=== PATIENT | male | born 1945 | race Caucasian/White ===

== ENCOUNTER 2017-11-07 07:35 | Day surgery (SDC) | payer MEDICARE, BC ==
[2017-11-07] MEDS ORDERED: Lactated Ringers 1,000 ML IV SCH (08:00)
[2017-11-07] MEDS ORDERED: Sodium Chloride 0.9% 10 ML Syringe FLUSH PRN (08:00)
[2017-11-07] MEDS ORDERED: Midazolam 1 MG/ML 2 ML SDV IV ONE (09:30)
[2017-11-07] MEDS ORDERED: Propofol 200 MG/20 ML SDV IV ONE (09:30)
--- NOTE | 2017-11-07 10:03 | PCM.OPNOTE ---
- General Post-Op/Procedure Note Date of Surgery/Procedure: 11/07/17 Operative Procedure(s): c scope Findings: sigmoid diverticulosis Pre Op Diagnosis: hx of colon polyp Post-Op Diagnosis: sigmoid diverticulosis Primary Surgeon: Stevie Cuello Anesthesia Provider: Dedra Mitchell Pathology: none Complications: None Condition: Good Free Text/Narrative:: see dictation
--- NOTE | 2017-11-08 09:20 | OR ---
DATE OF OPERATION: 11/07/2017 SURGEON: Stevie Cuello MD PROCEDURE PERFORMED: Colonoscopy. PREOPERATIVE DIAGNOSIS: Personal history of colon polyps. POSTOPERATIVE DIAGNOSIS: Sigmoid diverticulosis. INDICATIONS FOR PROCEDURE: This is a 72-year-old white male, who presents for a followup colonoscopy. Last C-scope was in 2011. He had an adenomatous polyp removed and it was recommended that he undergo a repeat colonoscopy at this time. DESCRIPTION OF PROCEDURE: After an excellent IV sedation was administered, digital rectal exam was performed, no marked abnormality was noted. The flexible colonoscope was inserted and advanced without difficulty to the cecum. The prep was excellent. The following findings were noted. Ascending colon, unremarkable. Transverse colon, unremarkable. Descending colon, unremarkable. Sigmoid and rectum, mild diverticulosis. Rectum, unremarkable. Colon was deflated as the scope was removed. The patient tolerated procedure well and was taken to recovery in good condition. Repeat colonoscopy would normally be in 10 years, but given his age and current guidelines, this could be on a p.r.n. basis. /[id number] /MATILDE
== END 2017-11-07 10:59 | disposition home or self-care (01) ==
LOC: FB.SDS 07:35
PROVIDERS: ATTEND Surgery
DX: Z12.11 Encounter for screening for malignant neoplasm of colon (principal); K57.30 Diverticulosis of large intestine without perforation or abscess without bleeding; E05.90 Thyrotoxicosis, unspecified without thyrotoxic crisis or storm; Z98.890 Other specified postprocedural states; Z86.010 Personal history of colon polyps; Z87.891 Personal history of nicotine dependence
CPT/HCPCS: 00811-QZ; J2250; J2704; J7120

== ENCOUNTER 2020-06-15 08:14 | Day surgery (SDC) | payer MEDICARE, BC ==
[2020-06-15] MEDS ORDERED: Midazolam 1 MG/ML 2 ML SDV IV ONE (08:15)
[2020-06-15] MEDS ORDERED: fentaNYL 100 MCG/2 ML SDV IV ONE (08:15)
[2020-06-15] MEDS ORDERED: Sodium Chloride 0.9% 10 ML Syringe FLUSH PRN (08:30)
[2020-06-15] MEDS ORDERED: Lactated Ringers 1,000 ML IV PRN (08:30)
[2020-06-15] MEDS ORDERED: acetaZOLAMIDE 500 MG Cap.ER PO ONE (10:30)
--- NOTE | 2020-06-16 13:14 | OR ---
DATE OF OPERATION: 06/15/2020 SURGEON: Cady Calderón MD PREOPERATIVE DIAGNOSIS: Visually significant cataract, right eye. POSTOPERATIVE DIAGNOSIS: Visually significant cataract, right eye. PROCEDURES PERFORMED: Phacoemulsification with intraocular lens placement, right eye. ASSISTANTS: None. ANESTHESIA: Local with sedation. COMPLICATIONS: None. BLOOD LOSS: None. IMPLANTS: Leonides ACU0T0, 12.5 diopter lens, serial #[id number] implanted. CDE: 2.76. DESCRIPTION OF PROCEDURE: After risks and benefits were reviewed with the patient, consent was obtained in the preoperative area, and the operative eye was marked with a surgical pen. In the preoperative area, a pledget was used to dilate the pupil consisting of a mixture of phenylephrine 10%, cyclopentolate 2%, moxifloxacin 0.5%, and bupivacaine 0.75%. The patient was taken to the operating room, where a time-out was performed, and the patient was placed under monitored anesthesia care. Topical tetracaine was used for anesthesia. The operative eye was prepped and draped for ophthalmic surgery, and the microscope was brought into position and focused. A paracentesis incision was made, followed by injection of preservative-free 1% lidocaine into the anterior chamber, followed by injection of Viscoat into the anterior chamber. A microkeratome blade was used to make a corneal limbal incision temporally. A cystotome was used to make the beginning of the capsulorrhexis, which was carried around 360 degrees in a curvilinear fashion using Utrata forceps. A Cifuentes cannula with BSS was used to hydrodissect and hydrodelineate the nucleus. The nucleus was removed in a divide and conquer manner using phacoemulsification. Irrigation and aspiration were used to remove the remaining cortical material. Provisc was used to inflate the capsular bag, and a pre-loaded 12.5 diopter lens, serial number [id number] was injected into the capsular bag. A Sinskey hook was used to position and center the lens. Next, irrigation and aspiration was used to remove any remaining viscoelastic and cortical material from the anterior chamber. BSS on a cannula was used to inflate the anterior chamber and hydrate the wound. The wound was checked and found to be watertight. 1 mg of Moxifloxacin was injected into the anterior chamber. Drapes were removed and the eye was cleaned. A drop of brimonidine 0.15% and a drop of TobraDex was placed. The eye was shielded, and the patient was taken to the recovery room in stable condition. CC: Malcom Guerra MD CC Cristian De La O, OD CC: Cady Calderón MD /[id number] ADELFO/MATILDE
== END 2020-06-15 10:40 | disposition home or self-care (01) ==
LOC: FB.SDS 08:14
PROVIDERS: ATTEND Ophthalmology
DX: H25.813 Combined forms of age-related cataract, bilateral (principal); H35.3111 Nonexudative age-related macular degeneration, right eye, early dry stage; H43.813 Vitreous degeneration, bilateral; Z87.891 Personal history of nicotine dependence
CPT/HCPCS: 00142-QZ; A9270-GY; J2250; J3010; V2632

== ENCOUNTER 2020-06-29 08:42 | Day surgery (SDC) | payer MEDICARE, BC ==
[2020-06-29] MEDS ORDERED: Midazolam 1 MG/ML 2 ML SDV IV ONE (08:43)
[2020-06-29] MEDS ORDERED: fentaNYL 100 MCG/2 ML SDV IV ONE (08:43)
[2020-06-29] MEDS ORDERED: Lactated Ringers 1,000 ML IV SCH (09:30)
[2020-06-29] MEDS ORDERED: Lactated Ringers 1,000 ML IV PRN (09:30)
[2020-06-29] MEDS ORDERED: Sodium Chloride 0.9% 10 ML Syringe FLUSH PRN (09:30)
[2020-06-29] MEDS ORDERED: acetaZOLAMIDE 500 MG Cap.ER PO ONE (09:45)
--- NOTE | 2020-06-30 09:50 | OR ---
DATE OF OPERATION: 06/29/2020 SURGEON: Cady Calderón MD PREOPERATIVE DIAGNOSIS: Visually significant cataract, left eye. POSTOPERATIVE DIAGNOSIS: Visually significant cataract, left eye. PROCEDURES PERFORMED: Phacoemulsification with intraocular lens placement, left eye. ASSISTANTS: None. ANESTHESIA: Local with sedation. COMPLICATIONS: None. BLOOD LOSS: None. IMPLANTS: Leonides ACU0T0, 14.0 diopter lens implanted. CDE: 3.97. DESCRIPTION OF PROCEDURE: After risks and benefits were reviewed with the patient, consent was obtained in the preoperative area, and the operative eye was marked with a surgical pen. In the preoperative area, a pledget was used to dilate the pupil consisting of a mixture of phenylephrine 10%, cyclopentolate 2%, moxifloxacin 0.5%, and bupivacaine 0.75%. The patient was taken to the operating room, where a time-out was performed, and the patient was placed under monitored anesthesia care. Topical tetracaine was used for anesthesia. The operative eye was prepped and draped for ophthalmic surgery, and the microscope was brought into position and focused. A paracentesis incision was made, followed by injection of preservative-free 1% lidocaine into the anterior chamber, followed by injection of Viscoat into the anterior chamber. A microkeratome blade was used to make a corneal limbal incision temporally. A cystotome was used to make the beginning of the capsulorrhexis, which was carried around 360 degrees in a curvilinear fashion using Utrata forceps. A Cifuentes cannula with BSS was used to hydrodissect and hydrodelineate the nucleus. The nucleus was removed in a divide and conquer manner using phacoemulsification. Irrigation and aspiration were used to remove the remaining cortical material. Provisc was used to inflate the capsular bag, and a pre-loaded Leonides ACU0T0, 14.0 diopter lens, serial number [id number] was injected into the capsular bag. A Sinskey hook was used to position and center the lens. Next, irrigation and aspiration was used to remove any remaining viscoelastic and cortical material from the anterior chamber. BSS on a cannula was used to inflate the anterior chamber and hydrate the wound. The wound was checked and found to be watertight. 1 mg of Moxifloxacin was injected into the anterior chamber. Drapes were removed and the eye was cleaned. A drop of brimonidine 0.15% and a drop of TobraDex was placed. The eye was shielded, and the patient was taken to the recovery room in stable condition. CC: MADALYN LOMAX OD CC: JOHN ORONA MD /[id number] ADELFO/MATILDE
== END 2020-06-29 11:30 | disposition home or self-care (01) ==
LOC: FB.SDS 08:42
PROVIDERS: ATTEND Ophthalmology
DX: H25.813 Combined forms of age-related cataract, bilateral (principal); H43.813 Vitreous degeneration, bilateral; H52.13 Myopia, bilateral; H35.3111 Nonexudative age-related macular degeneration, right eye, early dry stage; Z87.891 Personal history of nicotine dependence
CPT/HCPCS: 00142; 66984; A9270; J2250; J3010; V2632